=== PATIENT | female | born 1960 | race Hispanic/Latino ===

== ENCOUNTER 2023-11-24 21:02 | Emergency (ER) | payer MEDICARE ==
[~2023-11-24] VITALS: Ht 149.9 cm; Wt 93.0 kg
[~2023-11-24 21:02] MED LIST: GLIPIZIDE10 MG; GLUCOPHAGE1000 MG; HYDROCHLOROTHIA25 MG PO; LEVOTHYROXINE112 MCG PO; LISINOPRIL40 MG PO; MECLIZINE HCL12.5 MG PO
[2023-11-24 21:07] VITALS: TEMP 97.9
[2023-11-24] MEDS: ACETAMINOPHEN 325 MG TAB PO ONE (21:23)
[2023-11-24 23:33] VITALS: PULSE 82; RESP 17
[2023-11-24 23:47] VITALS: BP 121/52; O2SAT 98
== END 2023-11-24 23:48 | disposition home or self-care (01) ==
LOC: ER 21:07
DX: S00.81XA Abrasion of other part of head, initial encounter (principal); S80.01XA Contusion of right knee, initial encounter; W01.198A Fall on same level from slipping, tripping and stumbling with subsequent striking against other object, initial encounter; Y93.01 Activity, walking, marching and hiking; Y92.89 Other specified places as the place of occurrence of the external cause; I10 Essential (primary) hypertension; E11.9 Type 2 diabetes mellitus without complications; E78.5 Hyperlipidemia, unspecified; E03.9 Hypothyroidism, unspecified; E78.00 Pure hypercholesterolemia, unspecified; K21.9 Gastro-esophageal reflux disease without esophagitis
CPT/HCPCS: 70450; 72125; 99284